=== PATIENT | female | born 1945 | race Caucasian/White ===

== ENCOUNTER → 2022-10-13 09:38 | Outpatient (CLI) | payer MEDICARE, OTHER, SELFPAY ==
--- NOTE | ~2022-10-13 | XR_ITS ---
Clinical Indication: Abnormal weight loss PA and lateral views of the chest: Comparison: 01/10/2014 Findings: The visualized lungs are clear, without evidence of focal consolidation or pleural effusion . Patient's head partially obscures the lung apices, especially on the left side. Cardiomediastinal s ilhouette is within normal limits. Prominent kyphosis of the cervicothoracic spine noted. Impression: No significant pulmonary abnormality seen. Patient's head partially obscures the lung apices. Prominent kyphosis of the cervicothoracic spine. Reviewed, dictated and finalized at location [] ILE COLORIST FORMULATOR Impression: No significant pulmonary abnormality seen. Patient's head partially obscures th e lung apices. Prominent kyphosis of the cervicothoracic spine.
== END ==
PROVIDERS: PCP Clinical Nurse Specialist; Visit Provider Clinical Nurse Specialist
DX: R63.4 Abnormal weight loss (principal)
CPT/HCPCS: 71046

== ENCOUNTER 2022-11-04 01:41 | Day surgery (SDC) | payer MEDICARE, OTHER, SELFPAY ==
[2022-10-20 10:53] VITALS: BMI 16.7
--- NOTE | 2022-11-04 10:12 | PM.HPGS ---
History of Present Illness History of Present Illness Consent: Risks, benefits, and alternatives have been discussed and questions answered. Patient agrees to proceed with procedure. Chief complaint: abnormal weight loss Narrative: Georgia Braun is a 77 year old female who has been losing weight. About 8 years ago she had a colonoscopy had removal of a tubular adenoma. Review of Systems Review of Systems: All systems reviewed & are unremarkable except as noted in HPI and below PMFSH Past Medical History Medical History Anemia Cataract (lens) fragments in eye following cataract surgery, right eye Cholecystectomy planned 1999 Chronic renal failure Femur fracture BL Hip replacement planned 1995 Hyperlipidemia Hyperparathyroidism Hypertension Osteoarthritis Osteoporosis Pneumonia Rheumatoid arthritis Surgical History Surgical History H/O ankle fusion H/O oral surgery 2004 H/O parathyroidectomy 2007 H/O splenectomy 1985 H/O wrist replacement 2000 History of knee replacement 1989 Kidney replaced by transplant 1995 Family History Family History Father Diabetes mellitus CHF (congestive heart failure) Mother Hypertension Breast cancer Social History Social History Smoking status: Never smoker Alcohol intake: current Substance use: never Substance use type: does not use Lack of Transportation: No Lack of Food: Never True Current Housing: I Have Housing Concerned About Future Housing: No Difficulty Paying Gas/Electric Bills: No Difficulty Paying for Meds: No Currently Unemployed: No Education: Bachelor's Degree Difficulty w/ Childcare or Family Care: No Living arrangements: with family Spiritual care concerns: No Meds Home Medications and Allergies Home Medications Medication Instructions Recorded Confirmed Type amlodipine 5 mg tablet 5 mg PO DAILY 11/10/21 11/04/22 History atorvastatin 20 mg tablet 20 mg PO DAILY 11/10/21 11/04/22 History escitalopram oxalate 10 mg tablet 10 mg PO DAILY 11/10/21 11/04/22 History (Lexapro) famotidine 20 mg tablet 20 mg PO DAILY 11/10/21 11/04/22 History ferrous sulfate 325 mg (65 mg 325 mg PO DAILY 11/10/21 11/04/22 History iron) tablet metoprolol succinate 25 mg 12.5 mg PO DAILY 11/10/21 11/04/22 History tablet,extended release 24 hr mycophenolate sodium 360 mg 360 mg PO BID 11/10/21 11/04/22 History tablet,delayed release (Myfortic) oxybutynin chloride 5 mg tablet 5 mg PO DAILY 11/10/21 11/04/22 History tacrolimus 1 mg capsule, 1 mg PO Q12H 11/10/21 11/04/22 History immediate-release (Prograf) mupirocin 2 % topical ointment 1 applic topical .COMPLEX #22 grams 09/19/22 11/04/22 Rx prednisone 2.5 mg tablet 2.5 mg PO DAILY 09/19/22 11/04/22 History Allergies Allergy/AdvReac Type Severity Reaction Status Date / Time methotrexate Allergy Unknown Nausea Verified 11/04/22 10:13 Exam Resp: Auscultation: clear to auscultation bilaterally Cardio: Rate: regular rate Rhythm: regular rhythm GI: GI Palp: Yes Soft to palpation and No Tenderness to palpation present (GI) Assessment and Plan Assessment and plan (1) Personal history of colonic polyps: Code(s): Z86.010 - Personal history of colonic polyps Status: Acute Assessment and Plan: Colonoscopy with possible biopsy or polypectomy or cautery or injection of substances. (2) Unexplained weight loss: Code(s): R63.4 - Abnormal weight loss Status: Acute
[2022-11-04 10:15] VITALS: BP 142/89; PULSE 102; RESP 17; TEMP 36.2; O2SAT 100; BMI 16.1
[2022-11-04] MEDS: LACTATED RINGERS 1,000 ML 150 ML IV CONT (10:46)
--- NOTE | 2022-11-04 10:59 | WPDANESEPPF ---
Anes - Initial Pre Proc Eval Procedure: Operation Date: 11/04/22 11:30 Proposed Procedures p Colonoscopy - Kendrick Anand MD Date/Time: 11/04/22 10:59 Surgeon: Kendrick Anand MD Pre Op Diagnosis: abnormal weight loss Patient Data Age: 77 Gender: F Height: 1.52 m Weight: 37.5 kg Last Vital Signs Temp 97.1 F L 11/04/22 10:15 Pulse 102 H 11/04/22 10:15 Resp 17 11/04/22 10:15 BP 142/89 H 11/04/22 10:15 Pulse Ox 100 11/04/22 10:15 O2 Del Method Room Air 11/04/22 10:15 Allergies Allergy/AdvReac Type Severity Reaction Status Date / Time methotrexate Allergy Unknown Nausea Verified 11/04/22 10:13 Home Medications Medication Instructions Recorded Confirmed Type amlodipine 5 mg tablet 5 mg PO DAILY 11/10/21 11/04/22 History atorvastatin 20 mg tablet 20 mg PO DAILY 11/10/21 11/04/22 History escitalopram oxalate 10 mg tablet 10 mg PO DAILY 11/10/21 11/04/22 History (Lexapro) famotidine 20 mg tablet 20 mg PO DAILY 11/10/21 11/04/22 History ferrous sulfate 325 mg (65 mg 325 mg PO DAILY 11/10/21 11/04/22 History iron) tablet metoprolol succinate 25 mg 12.5 mg PO DAILY 11/10/21 11/04/22 History tablet,extended release 24 hr mycophenolate sodium 360 mg 360 mg PO BID 11/10/21 11/04/22 History tablet,delayed release (Myfortic) oxybutynin chloride 5 mg tablet 5 mg PO DAILY 11/10/21 11/04/22 History tacrolimus 1 mg capsule, 1 mg PO Q12H 11/10/21 11/04/22 History immediate-release (Prograf) mupirocin 2 % topical ointment 1 applic topical .COMPLEX #22 grams 09/19/22 11/04/22 Rx prednisone 2.5 mg tablet 2.5 mg PO DAILY 09/19/22 11/04/22 History Patient hx anesthesia problems: other (prolonged awakeing) Family hx anesthesia problems: none Results Review: All pre-operative results and documents have been reviewed as part of the pre-operative evaluation. [facility] Past Medical History Medical History Anemia Cataract (lens) fragments in eye following cataract surgery, right eye Cholecystectomy planned 1999 Chronic renal failure Femur fracture BL Hip replacement planned 1995 Hyperlipidemia Hyperparathyroidism Hypertension Osteoarthritis Osteoporosis Pneumonia Rheumatoid arthritis Surgical History Surgical History H/O ankle fusion H/O oral surgery 2004 H/O parathyroidectomy 2007 H/O splenectomy 1985 H/O wrist replacement 2000 History of knee replacement 1989 Kidney replaced by transplant 1995 Family History Family History Father Diabetes mellitus CHF (congestive heart failure) Mother Hypertension Breast cancer Social History Social History Smoking status: Never smoker Alcohol intake: current Substance use: never Substance use type: does not use Lack of Transportation: No Lack of Food: Never True Current Housing: I Have Housing Concerned About Future Housing: No Difficulty Paying Gas/Electric Bills: No Difficulty Paying for Meds: No Currently Unemployed: No Education: Bachelor's Degree Difficulty w/ Childcare or Family Care: No Living arrangements: with family Spiritual care concerns: No Anes - Eval Final PreProcedure Day of Procedure 11/04/22 10:59 Patient weight: thin Heart: regular rate and rhythm Lungs: clear to auscultation Airway: Mallampati scale class IV (has history of difficult intubation) Neurological: alert and oriented Last oral intake: >/= 8 hours ASA classification: III Emergent: no Anesthetic plan: proceed Anesthesia type and monitoring: general GIVS and standard monitoring Results Review: All pre-operative results and documents have been reviewed as part of the pre-operative evaluation. Informed Consent: The patient's anesthetic plan and its attendant risks and benef
--- NOTE | 2022-11-04 11:27 | SUR.OPER ---
MADE MD AWARE, TRANSVERSE COLON POLYP NOT RETRIEVED. NO NEW ORDERS AT THIS TIME.
[2022-11-04 11:29] VITALS: BP 90/51; PULSE 82; RESP 20; O2SAT 100
[2022-11-04 11:39] VITALS: BP 105/59; PULSE 74; RESP 20; O2SAT 100
[2022-11-04 11:49] VITALS: BP 130/74; PULSE 81; RESP 22; O2SAT 100
== END 2022-11-04 11:59 | disposition home or self-care (01) ==
PROVIDERS: PCP Clinical Nurse Specialist; Visit Provider Internal Medicine Gastroenterology
PROC: 0DJD8ZZ Inspection of Lower Intestinal Tract, Via Natural or Artificial Opening Endoscopic (ICD-10-PCS; CPT 45378; principal; 2022-11-04 11:30)
DX: Z12.11 Encounter for screening for malignant neoplasm of colon (principal); D12.4 Benign neoplasm of descending colon; K63.5 Polyp of colon; R63.4 Abnormal weight loss; E78.5 Hyperlipidemia, unspecified; I10 Essential (primary) hypertension; M06.9 Rheumatoid arthritis, unspecified; M81.0 Age-related osteoporosis without current pathological fracture; D64.9 Anemia, unspecified; Z94.0 Kidney transplant status; Z79.621 Long term (current) use of calcineurin inhibitor
CPT/HCPCS: 45380; 88305; J2704; J7120

== ENCOUNTER → 2022-12-30 12:23 | Outpatient (CLI) | payer MEDICARE, OTHER, SELFPAY ==
--- NOTE | ~2022-12-30 | MM_ITS ---
EXAMINATION: MM screening juan BI w sari HISTORY: Screening TECHNIQUE: Craniocaudal and mediolateral oblique 3-D tomosynthesis images were obtained and synthetic 2-D images were generated. CAD analysis was submitted and interpreted. COMPARISON: No prior mammogram is available for comparison at this institution. BREAST PARENCHYMAL COMPOSITION: The breasts are extremely dense, which lowers the sensitivity of mamm ography FINDINGS: There is no evidence of suspicious mass, calcification, or architectural distortion to sugg est malignancy in either breast. There has been no suspicious interval change. IMPRESSION: 1. No mammographic evidence of malignancy. 2. Recommend routine screening mammography in one year. BI-RADS Category 1: Negative Reviewed, dictated and finalized at location A. OFFICER
== END ==
PROVIDERS: PCP Internal Medicine; Visit Provider Nurse Practitioner
DX: Z12.31 Encounter for screening mammogram for malignant neoplasm of breast (principal)
CPT/HCPCS: 77063; 77067

== ENCOUNTER 2023-10-03 14:03 | Emergency (ER) | payer MEDICARE, OTHER, SELFPAY ==
--- NOTE | ~2023-10-03 | XR_ITS ---
XR abdomen/kub 1V 10/03/2023 14:29 Indication: Diffuse abdominal pain Procedure: KUB Comparison: No prior studies for comparison. Findings: Bowel gas pattern is nonspecific with air-fluid levels in the left upper abdomen. Mildly di lated small bowel.. There are extensive surgical changes in the abdomen. There is a left total hip ar throplasty. Nonobstructive bowel gas pattern. Moderate colonic fecal loading. Impression: 1: Mildly dilated small bowel left upper abdomen with air-fluid levels. Partial obstruction not exclu ded. Reviewed, dictated and finalized at location L. NHOUSE INSTRUCTOR Impression: 1: Mildly dilated small bowel left upper abdomen with air-fluid levels. Partial obstruction not excluded.
[2023-10-03 14:14] VITALS: BP 139/95; PULSE 95; RESP 16; TEMP 36.6; O2SAT 98
--- NOTE | 2023-10-03 14:38 | ED.ABDPAIN ---
HPI - Abdominal Pain General Chief Complaint: Abdominal Pain Stated Complaint: Abdominal pain Source: patient Mode of arrival: ambulatory Limitations: no limitations History of Present Illness HPI narrative: Pt presents for evaluation of abdominal pain. Pain started last night going into this morning. Pain is on the right side of her abdomen, described as a dull aching sensation and rated 5/10 in severity. Pain is fairly constant. She has associated diarrhea and nausea without vomiting. No fever, chills, urinary symptoms. No history of similar symptoms. Surgical history positive for cholecystectomy, splenectomy and kidney transplant. She has an underlying history of rheumatoid arthritis, hyperlipidemia, vitamin d deficiency. Her grandson, with whom she lives, recently had COVID. Related Data Home Medications Medication Instructions Recorded Confirmed amlodipine 5 mg tablet 5 mg PO DAILY 11/10/21 10/03/23 atorvastatin 20 mg tablet 20 mg PO DAILY 11/10/21 10/03/23 escitalopram oxalate 10 mg tablet 10 mg PO DAILY 11/10/21 10/03/23 (Lexapro) ferrous sulfate 325 mg (65 mg 325 mg PO DAILY 11/10/21 10/03/23 iron) tablet metoprolol succinate 25 mg 12.5 mg PO DAILY 11/10/21 10/03/23 tablet,extended release 24 hr oxybutynin chloride 5 mg tablet 5 mg PO DAILY 11/10/21 10/03/23 tacrolimus 1 mg capsule, 1 mg PO Q12H 11/10/21 10/03/23 immediate-release (Prograf) prednisone 2.5 mg tablet 2.5 mg PO DAILY 09/19/22 10/03/23 famotidine 20 mg tablet 20 mg PO .prn 09/07/23 10/03/23 mecobalamin (vitamin B12) 1,000 1,000 mcg sublingual DAILY 09/07/23 10/03/23 mcg disintegrating tablet,sublingual Allergies Allergy/AdvReac Type Severity Reaction Status Date / Time methotrexate Allergy Unknown Nausea Verified 10/03/23 14:10 Review of Systems Review of Systems: CONSTITUTIONAL: Denies fever, chills, or sweats. EYES: Denies visual changes, redness, or discharge. ENT: Denies rhinorrhea, congestion, sore throat, or otalgia. CARDIOVASCULAR: Denies chest pain, palpitations, or edema. RESPIRATORY: Denies cough or dyspnea. GASTROINTESTINAL: Reports abdominal pain, nausea, diarrhea. Denies vomiting GENITOURINARY: Denies dysuria or hematuria. SKIN: Denies rash or itching. MUSCULOSKELETAL: Denies back pain, joint pain, or myalgia. NEUROLOGIC: Denies headache, numbness, dizziness, or weakness. PSYCHIATRIC: Denies anxiety or depression. [facility] Past Medical History Medical History Anemia Cataract (lens) fragments in eye following cataract surgery, right eye Cholecystectomy planned 1999 Chronic renal failure Femur fracture BL Hip replacement planned 1995 Hyperlipidemia Hyperparathyroidism Hypertension Osteoarthritis Osteoporosis Personal history of kidney stones Pneumonia Rheumatoid arthritis Surgical History Surgical History H/O ankle fusion H/O oral surgery 2004 H/O parathyroidectomy 2007 H/O splenectomy 1985 H/O wrist replacement 2000 History of knee replacement 1989 Kidney replaced by transplant 1995 Family History Family History Father Diabetes mellitus CHF (congestive heart failure) Mother Hypertension Breast cancer Social History Social History Smoking status: Never smoker Alcohol intake: current Substance use: never Substance use type: does not use Lack of Transportation: No Lack of Food: Never True Current Housing: I Have Housing Concerned About Future Housing: No Difficulty Paying Gas/Electric Bills: No Difficulty Paying for Meds: No Currently Unemployed: No Education: Bachelor's Degree Difficulty w/ Childcare or Family Care: No Living arrangements: with family Spiritual care concerns: No Exam Narra
[2023-10-03] MEDS: ONDANSETRON HCL ODT 4 MG TABLET PO (14:44)
== END 2023-10-03 15:22 | disposition short-term general hospital (02) ==
PROVIDERS: Emergency Provider Nurse Practitioner; PCP Internal Medicine
DX: K56.609 Unspecified intestinal obstruction, unspecified as to partial versus complete obstruction (principal); Z20.822 Contact with and (suspected) exposure to COVID-19; D64.9 Anemia, unspecified; E78.5 Hyperlipidemia, unspecified; M19.90 Unspecified osteoarthritis, unspecified site; M81.0 Age-related osteoporosis without current pathological fracture; M06.9 Rheumatoid arthritis, unspecified; Z90.89 Acquired absence of other organs; I10 Essential (primary) hypertension; Z94.0 Kidney transplant status
CPT/HCPCS: 74018; 87426; 99213; A9270; C9803; G0463

== ENCOUNTER 2023-10-03 15:54 | Emergency (ER) | payer MEDICARE, OTHER, SELFPAY ==
--- NOTE | ~2023-10-03 | CT_ITS ---
EXAMINATION: CT abdomen pelvis w con DATE: 10/03/2023 20:00 INDICATION: diffuse abd pain, partial obstruction on XR? TECHNIQUE: Computed tomography (CT) of the abdomen and pelvis was performed with 100 mL Omnipaque-350 intravenous contrast. Automated exposure control and iterative reconstruction technique were employe d. The dose-length product was 192.50 mGy-cm. COMPARISON: None. FINDINGS: Lower thorax: Senescent changes. Right lower lobe air cyst. Bibasilar scar. Coronary artery calcifica tions. Liver: Heterogeneous liver enhancement. Biliary/Gallbladder: Gallbladder is absent. No bile duct dilation. Pancreas: No mass or duct dilation. Spleen: Not confidently visualized. Adrenals: No mass. Kidneys: No suspicious mass, obstructing stone, or hydronephrosis. Severe bilateral atrophy. Right mi dpole and lower pole cysts. Bilateral hypodensities that are too small to characterize but most likel y represent cysts. Right lower quadrant transplant kidney, with a simple lower pole cyst, and nonobst ructing lower pole calculi. GI tract: Moderate distal esophageal and gastric wall edema. No definite small or large bowel dilatio n, noting that evaluation is limited by the paucity of intra-abdominal fat. Appendix not visualized. Nondilated fluid-filled cecum. Mesentery/Peritoneum: No ascites, mass, or free air. Retroperitoneum: No mass. Atherosclerotic abdominal aortic and/or arterial calcifications. Pelvis: Pelvic organs are within normal limits. Small volume free pelvic fluid. Soft Tissues: Soft tissues and body wall unremarkable. Gluteal injection granulomas. Bones: No acute osseous finding. Uncomplicated partially visualized left hip arthroplasty hardware. IMPRESSION: No CT evidence of bowel obstruction, noting that evaluation of the bowel is somewhat limited by the p aucity of abdominal fat. Moderate esophagitis/gastritis. Heterogeneous liver enhancement may reflect a degree of cirrhosis, correlate with liver enzymes. The spleen is not visualized and may be surgically absent. Severe atrophy of the [place] kidneys. Right lower quadrant renal transplant. Reviewed, dictated and finalized at location K. PREPARER IMPRESSION: No CT evidence of bowel obstruction, noting that evaluation of the bowel is maria eugenia ewhat limited by the paucity of abdominal fat. Moderate esophagitis/gastritis. Heterogeneous liver enhancement may reflect a degree of cirrhosis, correlate wi th liver enzymes. The spleen is not visualized and may be surgically absent. Severe atrophy of the [place] kidneys. Right lower quadrant renal transplant.
[2023-10-03 15:55] VITALS: BP 138/86; PULSE 96; RESP 20; TEMP 36.5; O2SAT 98
--- NOTE | 2023-10-03 18:13 | ED.ABDPAIN ---
HPI - Abdominal Pain General Chief Complaint: Abdominal Pain <BASSAM Helms Last Filed: 10/03/23 18:28> Stated Complaint: ABD PAIN ?SBO <BASSAM Helms Last Filed: 10/03/23 18:28> Time Seen by Provider: 10/03/23 20:53 <BASSAM Helms Last Filed: 10/03/23 18:28> Source: patient <BASSAM Helms Last Filed: 10/03/23 18:28> Mode of arrival: ambulatory <BASSAM Helms Last Filed: 10/03/23 18:28> Limitations: no limitations <BASSAM Helms Last Filed: 10/03/23 18:28> History of Present Illness HPI narrative: Patient is a 78 y/o female, with PMH of RA, who presents to the ED with c/o abdominal pain. Patient reports having bloating of her abdomen for the last couple weeks. She developed pain diffusely across her abdomen today. Pain has been progressively worsening. She has not taken anything for the pain. She was seen at an urgent care prior to arrival and had a abdominal x-ray performed which showed a possible partial small-bowel obstruction. She was then referred here for further evaluation. Patient reports 1 episode of diarrhea today. She notes she was constipated for several days prior to today. She does additionally endorse nausea today, denies vomiting. Denies fevers. Denies urinary complaints. Patient denies any previous hx of bowel obstruction. She has had previous abdominal surgeries, including kidney transplant, cholecystectomy, splenectomy. <BASSAM Helms Last Filed: 10/03/23 18:28> Patient is a 78 y/o female, with PMH of RA, who presents to the ED with c/o abdominal pain. Patient reports having bloating of her abdomen for the last couple weeks. She developed pain diffusely across her abdomen today. Pain has been progressively worsening. She has not taken anything for the pain. She was seen at an urgent care prior to arrival and had a abdominal x-ray performed which showed a possible partial small-bowel obstruction. She was then referred here for further evaluation. Patient reports 1 episode of diarrhea today, loose/not formed with fluffy pieces; not bloody. She notes she was constipated for several days prior to today. She does additionally endorse nausea today, denies vomiting. Denies fevers. Denies urinary complaints. Patient denies any previous hx of bowel obstruction. She has had previous abdominal surgeries, including kidney transplant, cholecystectomy, splenectomy. Med list also includes mycophenalate and Tylenol arthritis. She was given a Zofran ODT at the urgent care. <Nancy Ag MD - Last Filed: 10/03/23 22:19> Related Data Home Medications: Home Medications Medication Instructions Recorded Confirmed amlodipine 5 mg tablet 5 mg PO DAILY 11/10/21 10/03/23 atorvastatin 20 mg tablet 20 mg PO DAILY 11/10/21 10/03/23 escitalopram oxalate 10 mg tablet 10 mg PO DAILY 11/10/21 10/03/23 (Lexapro) ferrous sulfate 325 mg (65 mg 325 mg PO DAILY 11/10/21 10/03/23 iron) tablet metoprolol succinate 25 mg 12.5 mg PO DAILY 11/10/21 10/03/23 tablet,extended release 24 hr oxybutynin chloride 5 mg tablet 5 mg PO DAILY 11/10/21 10/03/23 tacrolimus 1 mg capsule, 1 mg PO Q12H 11/10/21 10/03/23 immediate-release (Prograf) prednisone 2.5 mg tablet 2.5 mg PO DAILY 09/19/22 10/03/23 famotidine 20 mg tablet 20 mg PO .prn 09/07/23 10/03/23 mecobalamin (vitamin B12) 1,000 1,000 mcg sublingual DAILY 09/07/23 10/03/23 mcg disintegrating tablet,sublingual <Joan Yancey PA-C - Last Filed: 10/03/23 18:28> Allergies/Adverse Reactions: Allergies Allergy/AdvReac Type Severity Reaction Status Date / Time methotrexate Allergy Unknown Nausea Verified 10/03/23 14:10 <Joan Yancey PA-C - Last Filed: 10/03/23 18:28> Review of Systems Review of Systems: CONSTITUTIONAL: Denies fever, chills, or sweats. GASTROINTESTINAL: See HPI. GENITOUR
[2023-10-03 18:50] LABS: Basophils Absolute Auto 0.1 K/mm3 (0.0-0.1); Basophils Percent Auto 0.3 % (0.2-1.2); Eosinophils Percent Auto 0.2 % (0-4.4); Hematocrit 37.1 % (37.0-47.0); Immature Granulocyte Absolute 0.05 K/mm3 (0.00-0.031); Immature Granulocyte Percent A 0.3 % (0-0.5); Lymphocytes Percent Auto 13.6 % (18.3-44.2); Mean Corpuscular HGB Conc 29.6 g/dl (32-36); Mean Corpuscular Hemoglobin 25.9 pg (26-34); Mean Corpuscular Volume 87.3 fl (80-100); Mean Platelet Volume 11.3 fl (7.4-10.4); Monocytes Absolute Auto 0.8 K/mm3 (0.1-0.6); Monocytes Percent Auto 4.7 % (2.6-8.5); Neutrophils Absolute Auto 14.3 K/mm3 (1.3-6.7); Neutrophils Percent Auto 80.9 % (45.5-73.1); Platelet Count Result 511 k/mm3 (150-375); Red Blood Count 4.25 M/mm3 (4.2-5.4); Red Cell Distribution Width 18.3 % (11.5-14.5); White Blood Count 17.7 K/mm3 (4.5-10.0)
[2023-10-03 19:09] LABS: Anisocytosis 1+ (NORMAL); Hypochromasia 1+ (NORMAL); Ovalocytes 1+ (NORMAL); Platelet Estimate Increased (Adequate)
[2023-10-03 19:10] LABS: Schistocytes None Seen (NORMAL); Target Cells 1+ (NORMAL)
[2023-10-03 19:24] LABS: Lactic Acid Reflex 1.2 mmol/L (0.7-2.0)
[2023-10-03 19:29] LABS: Alanine Aminotransferase 12 U/L (6-35); Albumin Level 3.6 g/dL (3.5-5.1); Alkaline Phosphatase 87 U/L (38-126); Anion Gap 6 mmol/L (8-16); Aspartate Amino Transferase 29 U/L (14-36); Bilirubin,Total 1.2 mg/dL (0.2-1.3); Blood Urea Nitrogen 23 mg/dL (7-17); Calcium 10.1 mg/dL (8.4-10.2); Carbon Dioxide 26 mmol/L (22-30); Chloride 108 mmol/L (98-107); Estimated CRCL calculation 35 ml/min; Estimated Glomerular Filt Rate > 60; Glucose 95 mg/dL (65-110); Lipase 52 U/L (23-300); Sodium 140 mmol/L (137-145)
[2023-10-03 21:03] VITALS: BP 185/91; PULSE 80; RESP 23; TEMP 36.3; O2SAT 97
[2023-10-03 21:55] VITALS: BP 146/93; PULSE 65; RESP 15; TEMP 36.6; O2SAT 99
== END 2023-10-03 21:56 | disposition home or self-care (01) ==
LOC: ANHED 21:30
PROVIDERS: Physician Assistant; Emergency Provider Student in an Organized Health Care Education/Training Program; PCP Internal Medicine
DX: K59.00 Constipation, unspecified (principal); I12.9 Hypertensive chronic kidney disease with stage 1 through stage 4 chronic kidney disease, or unspecified chronic kidney disease; N18.9 Chronic kidney disease, unspecified; E78.5 Hyperlipidemia, unspecified; D64.9 Anemia, unspecified; M19.90 Unspecified osteoarthritis, unspecified site; M81.0 Age-related osteoporosis without current pathological fracture; M06.9 Rheumatoid arthritis, unspecified; Z94.0 Kidney transplant status; Z96.653 Presence of artificial knee joint, bilateral; Z96.639 Presence of unspecified artificial wrist joint; Z87.01 Personal history of pneumonia (recurrent); Z90.81 Acquired absence of spleen; Z90.710 Acquired absence of both cervix and uterus; Z90.89 Acquired absence of other organs; Z90.49 Acquired absence of other specified parts of digestive tract; R93.2 Abnormal findings on diagnostic imaging of liver and biliary tract; K20.90 Esophagitis, unspecified without bleeding; K29.70 Gastritis, unspecified, without bleeding
CPT/HCPCS: 36415; 74018; 74177; 80053; 83605; 83690; 85025; 87426; 99284; A9270; C9803; Q9967

== ENCOUNTER 2024-02-04 17:36 | Emergency (ER) | payer MEDICARE, OTHER, SELFPAY ==
[2024-02-04 17:43] VITALS: BP 168/104; PULSE 92; RESP 16; TEMP 36.8; O2SAT 96
--- NOTE | 2024-02-04 20:23 | ED.EPISTAXIS ---
HPI - Epistaxis General Chief complaint: Epistaxis Stated complaint: epistaxis Time Seen by Provider: 02/04/24 20:16 History of Present Illness HPI Narrative: 79-year-old female with a known perforated septum and frequent epistaxis presents to emergency department with family at bedside for epistaxis. States she blew her nose and it started bleeding out of both nares around 5:00 p.m.. Her family member states that she passed a few blood clots from her nares. Patient states when it was bleeding more earlier, she felt like she had difficulty breathing secondary to the clogged nares, however she denies current dyspnea, chest pain, lightheadedness or dizziness, loss of consciousness. States it does not feel like there is blood going down the back of her throat. She is not anticoagulated. Her ENT is Dr. Marie. Related Data Home Medications Medication Instructions Recorded Confirmed amlodipine 5 mg tablet 5 mg PO DAILY 11/10/21 10/03/23 atorvastatin 20 mg tablet 20 mg PO DAILY 11/10/21 10/03/23 escitalopram oxalate 10 mg tablet 10 mg PO DAILY 11/10/21 10/03/23 (Lexapro) ferrous sulfate 325 mg (65 mg 325 mg PO DAILY 11/10/21 10/03/23 iron) tablet metoprolol succinate 25 mg 12.5 mg PO DAILY 11/10/21 10/03/23 tablet,extended release 24 hr oxybutynin chloride 5 mg tablet 5 mg PO DAILY 11/10/21 10/03/23 tacrolimus 1 mg capsule, 1 mg PO Q12H 11/10/21 10/03/23 immediate-release (Prograf) prednisone 2.5 mg tablet 2.5 mg PO DAILY 09/19/22 10/03/23 famotidine 20 mg tablet 20 mg PO .prn 09/07/23 10/03/23 mecobalamin (vitamin B12) 1,000 1,000 mcg sublingual DAILY 09/07/23 10/03/23 mcg disintegrating tablet,sublingual Allergies Allergy/AdvReac Type Severity Reaction Status Date / Time methotrexate Allergy Unknown Nausea Verified 02/04/24 20:20 Review of Systems Review of Systems: CONSTITUTIONAL: Denies fever, chills, or sweats. EYES: Denies visual changes, redness, or discharge. ENT: See HPI CARDIOVASCULAR: Denies chest pain, palpitations, or edema. RESPIRATORY: Denies cough or dyspnea. GASTROINTESTINAL: Denies abdominal pain, nausea, vomiting, or diarrhea. GENITOURINARY: Denies dysuria or hematuria. SKIN: Denies rash or itching. MUSCULOSKELETAL: Denies back pain, joint pain, or myalgia. NEUROLOGIC: Denies headache, numbness, or weakness. PSYCHIATRIC: Denies anxiety or depression. [facility] Past Medical History Medical History Anemia Cataract (lens) fragments in eye following cataract surgery, right eye Chronic renal failure Femur fracture BL Hip replacement planned 1995 Hyperlipidemia Hyperparathyroidism Hypertension Osteoarthritis Osteoporosis Personal history of kidney stones Pneumonia Rheumatoid arthritis Surgical History Surgical History H/O ankle fusion H/O oral surgery 2004 H/O parathyroidectomy 2007 H/O splenectomy 1985 H/O wrist replacement 2000 History of cholecystectomy History of knee replacement 1989 Kidney replaced by transplant 1995 Family History Family History Father Diabetes mellitus CHF (congestive heart failure) Mother Hypertension Breast cancer Social History Social History Smoking status: Never smoker Alcohol intake: current Substance use: never Substance use type: does not use Lack of Transportation: No Lack of Food: Never True Current Housing: I Have Housing Concerned About Future Housing: No Difficulty Paying Gas/Electric Bills: No Difficulty Paying for Meds: No Currently Unemployed: No Education: Bachelor's Degree Difficulty w/ Childcare or Family Care: No Living arrangements: with family Additional living arrangements comments: daughter Spiritual care concerns: No Exam Narrative
[2024-02-04 21:08] VITALS: BP 175/95; PULSE 82; RESP 15; O2SAT 97
[2024-02-04 21:14] VITALS: PULSE 82
[2024-02-04] MEDS: METOPROLOL SUCCINATE EXT REL 25 MG TABCR PO (21:14)
[2024-02-04 22:20] VITALS: BP 184/109; PULSE 84; RESP 18; O2SAT 96
== END 2024-02-04 22:30 | disposition home or self-care (01) ==
PROVIDERS: Emergency Provider Physician Assistant; PCP Internal Medicine
DX: R04.0 Epistaxis (principal); I12.9 Hypertensive chronic kidney disease with stage 1 through stage 4 chronic kidney disease, or unspecified chronic kidney disease; N18.9 Chronic kidney disease, unspecified; E78.5 Hyperlipidemia, unspecified; M19.90 Unspecified osteoarthritis, unspecified site; M81.0 Age-related osteoporosis without current pathological fracture; M06.9 Rheumatoid arthritis, unspecified; H59.021 Cataract (lens) fragments in eye following cataract surgery, right eye; Z94.0 Kidney transplant status; Z96.653 Presence of artificial knee joint, bilateral; Z96.639 Presence of unspecified artificial wrist joint; Z86.2 Personal history of diseases of the blood and blood-forming organs and certain disorders involving the immune mechanism; Z87.442 Personal history of urinary calculi; Z87.01 Personal history of pneumonia (recurrent); Z90.89 Acquired absence of other organs; Z90.81 Acquired absence of spleen; Z90.49 Acquired absence of other specified parts of digestive tract
CPT/HCPCS: 30901; 99283; A9270

== ENCOUNTER 2024-05-25 09:34 | Emergency (ER) | payer MEDICARE, OTHER, SELFPAY ==
--- NOTE | ~2024-05-25 | CT_ITS ---
EXAMINATION: CT cervical spine wo con DATE: 05/25/2024 11:47 INDICATION: Neck pain after trauma TECHNIQUE: Computed tomography (CT) of the cervical spine was performed without intravenous contrast. The dose-length product was 85 mGy-cm. COMPARISON: None FINDINGS: There is severe levoscoliosis with lateral listhesis to the left at C4-5 and C5-6. There is also anterolisthesis at C4-5, C5-6, C6-7 and C7-T1. There areas and agitation of the odontoid proces s into the foramen magnum. Lytic defects of C2 and C3 were noted. Consider metastatic disease and mye ashley. Consider perched facet at C4-5 and C5-6. Mild wedge compression fracture of T3, age indetermina te. IMPRESSION: 1. Significant anterolisthesis at multiple levels including C4-5 through C7-T1 as well as left latera l listhesis at C4-5 and C5-6. Possible perched facets at C4-5 and C5-6. 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 3: Lytic defects of C2 and C3. Consider metastatic disease and myeloma. 4: Mild age-indeterminate wedge compression deformity of T3. Reviewed, dictated and finalized at location B. IMPRESSION: 1. Significant anterolisthesis at multiple levels including C4-5 through C7-T1 as well as left lateral listhesis at C4-5 and C5-6. Possible perched facets at C4-5 and C5-6. 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 3: Lytic defects of C2 and C3. Consider metastatic disease and myeloma. 4: Mild age-indeterminate wedge compression deformity of T3.
--- NOTE | ~2024-05-25 | CT_ITS ---
EXAMINATION: CT brain wo con DATE: 05/25/2024 11:46 INDICATION: Trauma. Head injury. TECHNIQUE: Computed tomography (CT) of the head was performed without intravenous contrast. The dose- length product was 605.33 mGy-cm. Automated exposure control and iterative reconstruction technique were employed. COMPARISON: None FINDINGS: Mild generalized atrophy. There are scattered mild periventricular and subcortical white ma tter changes, most likely related to small vessel ischemic disease (microangiopathy). No ventriculome christel or midline shift. There is intracranial atherosclerosis. Pituitary appears hyperdense, nonspecif ic. 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 No significant enlargement of the pituitary. IMPRESSION: 1. No acute intracranial abnormality. 2: Hyperdense pituitary gland. 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 3: Chronic age-related findings. Reviewed, dictated and finalized at location B.
--- NOTE | ~2024-05-25 | CT_ITS ---
EXAMINATION: CT chest abdomen pelvis w con DATE: 05/25/2024 12:12 CDT INDICATION: Trauma. TECHNIQUE: Computed tomography (CT) of the chest, abdomen, and pelvis was performed with 100 cc Omnip aque 350 intravenous contrast. The dose-length product was 247.26 mGy-cm. Automated exposure control and iterative reconstruction technique were employed. COMPARISON: CT dated 10/03/2023 FINDINGS: CHEST CT: Cardiomegaly. No significant pleural or pericardial effusion. No thoracic lymphadenopathy. There is a therosclerosis. There is dependent atelectasis. There are right fourth, fifth, sixth, seventh and eig hth rib fractures. There is an age-indeterminate sternal fracture with posterior displacement of the manubrium with respect to the sternum. There is scoliosis. ABDOMEN/PELVIS CT: Status post cholecystectomy. The spleen is not identified, possibly surgically absent. The kidneys ar e severely atrophic. There is a transplant kidney in the right pelvis. Mild hydronephrosis. There is a nonobstructing right renal stone in the transplant kidney. Nonobstructive bowel gas pattern. There is atherosclerosis. Bladder is severely distended. There is a left hip arthroplasty. There are severa l calcifications in the gluteal soft tissues, likely injection granulomas. IMPRESSION: 1. Multiple right rib fractures. 2: Age-indeterminate sternal fracture. 3: Nonobstructing right nephrolithiasis in the transplant kidney in the right pelvis. Reviewed, dictated and finalized at location B. IMPRESSION: 1. Multiple right rib fractures. 2: Age-indeterminate sternal fracture. 3: Nonobstructing right nephrolithiasis in the transplant kidney in the right p hussein.
[2024-05-25 09:32] VITALS: BP 165/95; PULSE 75; RESP 20; TEMP 36.4; O2SAT 97
[2024-05-25 10:00] VITALS: BP 151/81; PULSE 61; RESP 22; O2SAT 100
--- NOTE | 2024-05-25 10:18 | ED.FALL ---
HPI - Fall General Chief Complaint: Fall Stated Complaint: FALL-RIB PAIN Time Seen by Provider: 05/25/24 09:38 History of Present Illness HPI Narrative: 79-year-old female presents to the emergency department for evaluation for a ground level fall. Patient states that she was attempting to get some food from the Fridge when she turned and fell. Fall happened last night approximately 10:00 p.m.. Patient is unsure if she struck her head. Patient denies any loss of consciousness. Patient states since the fall she has had increased right-sided rib pain. Patient presented to the emergency department with her neighbors to assist. Related Data Home Medications Medication Instructions Recorded Confirmed amlodipine 5 mg tablet 5 mg PO DAILY 11/10/21 03/14/24 atorvastatin 20 mg tablet 20 mg PO DAILY 11/10/21 03/14/24 escitalopram oxalate 10 mg tablet 10 mg PO DAILY 11/10/21 03/14/24 (Lexapro) ferrous sulfate 325 mg (65 mg 325 mg PO DAILY 11/10/21 03/14/24 iron) tablet metoprolol succinate 25 mg 12.5 mg PO DAILY 11/10/21 03/14/24 tablet,extended release 24 hr oxybutynin chloride 5 mg tablet 5 mg PO DAILY 11/10/21 03/14/24 tacrolimus 1 mg capsule, 1 mg PO Q12H 11/10/21 03/14/24 immediate-release (Prograf) prednisone 2.5 mg tablet 2.5 mg PO DAILY 09/19/22 03/14/24 famotidine 20 mg tablet 20 mg PO .prn 09/07/23 03/14/24 mecobalamin (vitamin B12) 1,000 1,000 mcg sublingual DAILY 09/07/23 03/14/24 mcg disintegrating tablet,sublingual Allergies Allergy/AdvReac Type Severity Reaction Status Date / Time methotrexate Allergy Unknown Nausea Verified 03/14/24 08:01 Review of Systems Review of Systems: All systems reviewed & are unremarkable except as noted in HPI and below PMFSH Past Medical History Medical History Anemia Cataract (lens) fragments in eye following cataract surgery, right eye Chronic renal failure Femur fracture BL Hip replacement planned 1995 Hyperlipidemia Hyperparathyroidism Hypertension Osteoarthritis Osteoporosis Personal history of kidney stones Pneumonia Rheumatoid arthritis Surgical History Surgical History (Reviewed 03/14/24 @ 08:02 by Nicole Estrella [facility]) H/O ankle fusion H/O oral surgery 2004 H/O parathyroidectomy 2007 H/O splenectomy 1985 H/O wrist replacement 2000 History of cholecystectomy History of knee replacement 1989 Kidney replaced by transplant 1995 Family History Family History (Reviewed 03/14/24 @ 08:02 by Nicole Estrella [facility]) Father Diabetes mellitus CHF (congestive heart failure) Mother Hypertension Breast cancer Social History Social History (Reviewed 03/14/24 @ 08:02 by Nicole Estrella [facility]) Smoking status: Never smoker Alcohol intake: current Substance use: never Substance use type: does not use Lack of Transportation: No Lack of Food: Never True Current Housing: I Have Housing Concerned About Future Housing: No Difficulty Paying Gas/Electric Bills: No Difficulty Paying for Meds: No Currently Unemployed: No Education: Bachelor's Degree Difficulty w/ Childcare or Family Care: No Living arrangements: with family Additional living arrangements comments: daughter Spiritual care concerns: No Exam Narrative: APPEARANCE: Uncomfortable appearing, cachectic HEAD: normocephalic, atraumatic. EYES: PERRLA/EOMI, conjunctivae clear. NOSE: Normal no drainage EARS:TMS clear with good light reflex. THROAT: Pharynx clear, no exudate. NECK: Supple. No adenopathy, no masses. RESPIRATORY: Airway patent, respirations nonlabored. Clear to auscultation bilaterally, no rales, rhonchi, wheezing. CARDIOVASCULAR: Regular rate and rhythm without murmurs rubs or gallops. ABDOMINAL: Soft, nontender, nondistended, normal bowel sounds MUSCULOSKELETAL: Right posterior rib tenderness to palpation, no deformity, no ecchymosis NEURO: Alert. Cranial ner
[2024-05-25 11:34] LABS: Estimated CRCL calculation 49 ml/min; Estimated Glomerular Filt Rate > 60
[2024-05-25 12:08] VITALS: PULSE 80; RESP 24; O2SAT 91
[2024-05-25 12:09] VITALS: BP 140/86; PULSE 75; RESP 29; O2SAT 100
[2024-05-25] MEDS: fentaNYL CITRATE INJ (*CRX) 100 MCG/2 ML VIAL 50 MCG IV PUSH ×2 (12:43→14:59)
[2024-05-25 14:00] VITALS: BP 141/80; PULSE 64; RESP 25; O2SAT 100
[2024-05-25 14:00] LABS: Basophils Percent Auto 0.2 % (0.2-1.2); Hematocrit 34.1 % (37.0-47.0); Hemoglobin 10.4 g/dL (12.0-15.0); Immature Granulocyte Absolute 0.07 K/mm3 (0.00-0.031); Immature Granulocyte Percent A 0.5 % (0-0.5); Lymphocytes Absolute Auto 0.96 K/mm3 (0.9-3.2); Lymphocytes Percent Auto 6.4 % (18.3-44.2); Mean Corpuscular HGB Conc 30.5 g/dl (32-36); Mean Corpuscular Hemoglobin 25.6 pg (26-34); Mean Platelet Volume 11.6 fl (7.4-10.4); Monocytes Absolute Auto 0.7 K/mm3 (0.1-0.6); Monocytes Percent Auto 4.3 % (2.6-8.5); Neutrophils Absolute Auto 13.4 K/mm3 (1.3-6.7); Neutrophils Percent Auto 88.6 % (45.5-73.1); Platelet Count Result 468 k/mm3 (150-375); Red Blood Count 4.06 M/mm3 (4.2-5.4); Red Cell Distribution Width 18.7 % (11.5-14.5); White Blood Count 15.1 K/mm3 (4.5-10.0)
[2024-05-25 14:03] LABS: Prothrombin Time 13.3 Seconds (11.1-14.7)
[2024-05-25 14:05] LABS: Alanine Aminotransferase 16 U/L (6-35); Albumin Level 3.6 g/dL (3.5-5.1); Alkaline Phosphatase 93 U/L (38-126); Anion Gap 7 mmol/L (4-12); Aspartate Amino Transferase 30 U/L (14-36); Bilirubin,Total 0.8 mg/dL (0.2-1.3); Blood Urea Nitrogen 25 mg/dL (7-17); Calcium 9.5 mg/dL (8.4-10.2); Carbon Dioxide 28 mmol/L (22-30); Chloride 104 mmol/L (98-107); Estimated CRCL calculation 42 ml/min; Estimated Glomerular Filt Rate > 60; Glucose 103 mg/dL (65-110); Potassium 4.2 mmol/L (3.4-5.0); Sodium 139 mmol/L (137-145)
[2024-05-25 15:01] VITALS: BP 149/83; PULSE 61; RESP 23; O2SAT 99
== END 2024-05-25 15:53 | disposition short-term general hospital (02) ==
PROVIDERS: Emergency Provider Emergency Medicine; PCP Internal Medicine
DX: S22.41XA Multiple fractures of ribs, right side, initial encounter for closed fracture (principal); S27.0XXA Traumatic pneumothorax, initial encounter; M43.12 Spondylolisthesis, cervical region; I12.9 Hypertensive chronic kidney disease with stage 1 through stage 4 chronic kidney disease, or unspecified chronic kidney disease; N18.9 Chronic kidney disease, unspecified; E78.5 Hyperlipidemia, unspecified; D64.9 Anemia, unspecified; M19.90 Unspecified osteoarthritis, unspecified site; M85.80 Other specified disorders of bone density and structure, unspecified site; M06.9 Rheumatoid arthritis, unspecified; H59.021 Cataract (lens) fragments in eye following cataract surgery, right eye; Z94.0 Kidney transplant status; Z96.639 Presence of unspecified artificial wrist joint; Z96.649 Presence of unspecified artificial hip joint; Z96.653 Presence of artificial knee joint, bilateral; Z87.442 Personal history of urinary calculi; Z87.01 Personal history of pneumonia (recurrent); Z90.49 Acquired absence of other specified parts of digestive tract; Z90.89 Acquired absence of other organs; Z90.81 Acquired absence of spleen; Z79.899 Other long term (current) drug therapy; N20.0 Calculus of kidney; R93.7 Abnormal findings on diagnostic imaging of other parts of musculoskeletal system; R93.0 Abnormal findings on diagnostic imaging of skull and head, not elsewhere classified; W18.39XA Other fall on same level, initial encounter
CPT/HCPCS: 36415; 70450; 71260; 72125; 74177; 80053; 85025; 85610; 85730; 96374; 96376; 99285; J3010; L0140; Q9967

== ENCOUNTER 2024-10-29 12:24 | Emergency (ER) | payer MEDICARE, OTHER, SELFPAY ==
[2024-10-29 12:51] VITALS: BP 144/104; PULSE 101; RESP 16; TEMP 36.6; O2SAT 98
--- NOTE | 2024-10-29 13:39 | ED_ITS ---
HPI - Female Genitourinary General Chief complaint: Urogenital-Female Stated complaint: UTI Time Seen by Provider: 10/29/24 13:20 Source: patient, RN notes reviewed and old records reviewed Mode of arrival: ambulatory Limitations: no limitations History of Present Illness HPI Narrative: 79 year old female who presents to [facility] care accompanied by family with complaints of cloudy foul odorous urine for the past 2 days. with no fevers known, chills or sweats.Patient reports that she has had some burning with urination and also frequency for the past 5-6 days. Patient has had previous kidney transplant and has history of rheumatoid arthritis with severe contractures noted Patient reports no nausea or vomiting or episodes of diarrhea. Patient is resident of assisted living facility/ MD elicited complaint: UTI Pertinent past history: other (kidney transplant) Onset (ago): day(s) (5-6 days) Location of symptoms: perineum Severity: moderate Vaginal discharge: none Vaginal bleeding: none Treatment prior to arrival: none Related Data Home Medications ?Medication ?Instructions ?Recorded ?Confirmed ?Last Taken ?Type amlodipine 5 mg tablet 5 mg PO DAILY 11/10/21 10/29/24 11/04/22 09:00 History atorvastatin 20 mg tablet 20 mg PO DAILY 11/10/21 10/29/24 Unknown History escitalopram oxalate 10 mg tablet 10 mg PO DAILY 11/10/21 10/29/24 Unknown History (Lexapro) ferrous sulfate 325 mg (65 mg 325 mg PO DAILY 11/10/21 10/29/24 Unknown History iron) tablet metoprolol succinate 25 mg 12.5 mg PO DAILY 11/10/21 10/29/24 Unknown History tablet,extended release 24 hr oxybutynin chloride 5 mg tablet 5 mg PO DAILY 11/10/21 10/29/24 Unknown History tacrolimus 1 mg capsule, 1 mg PO Q12H 11/10/21 10/29/24 Unknown History immediate-release (Prograf) prednisone 2.5 mg tablet 2.5 mg PO DAILY 09/19/22 10/29/24 Unknown History famotidine 20 mg tablet 20 mg PO .prn 09/07/23 10/29/24 Unknown History mecobalamin (vitamin B12) 1,000 1,000 mcg sublingual DAILY 09/07/23 10/29/24 Unknown History mcg disintegrating tablet,sublingual acetaminophen 500 mg capsule 1,000 mg PO Q6H PRN 06/27/24 06/27/24 Unknown History cholecalciferol (vitamin D3) 50 50 mcg PO DAILY 06/27/24 10/29/24 Unknown History mcg (2,000 unit) capsule lidocaine 4 % topical patch 2 patch topical DAILY PRN pain 06/27/24 10/29/24 Unknown History mycophenolate sodium 360 mg mg PO 10/29/24 Unknown History tablet,delayed release Allergies Allergy/AdvReac Type Severity Reaction Status Date / Time methotrexate Allergy Unknown Nausea Verified 09/24/24 07:53 Review of Systems Review of Systems: CONSTITUTIONAL: Denies fever, chills, or sweats. CARDIOVASCULAR: Denies chest pain, palpitations, or edema. RESPIRATORY: Denies cough or dyspnea. GASTROINTESTINAL: Denies abdominal pain, nausea, vomiting, or diarrhea. GENITOURINARY: Reports dysuria, frequency, urgency. Denies flank pain or hematuria. SKIN: Denies rash or itching. MUSCULOSKELETAL: positive for chronic back pain or myalgia. Denies CVA tenderness NEUROLOGIC: Denies headache All systems reviewed & are unremarkable except as noted in HPI and below PMFSH Past Medical History Medical History Personal history of kidney stones Cataract (lens) fragments in eye following cataract surgery, right eye Hypertension Osteoporosis Anemia Hip replacement planned 1995 Pneumonia Osteoarthritis Hyperparathyroidism Hyperlipidemia Femur fracture BL Chronic renal failure Rheumatoid arthritis Surgical History Surgical History History of cholecystectomy H/O ankle fusion H/O splenectomy 1984 History of knee replacement 1989 H/O wrist replacement 2000 H/O oral surgery 2004 H/O parathyroidectomy 2007 Kidney replaced by transplant 1995 Family History Family History Father Diabetes mellitus CHF (congestive heart failure) Mother Hypertension Breast cancer Social History Social History Social History: Caffeine-tea Smoking status: Never smoker Alcohol intake: current Alcohol use details: rarely Substance use: never Substance use type: does not use Lack of Transportation: No Lack of Food: Never True Current Housing: I Have Housing Concerned About Future Housing: No Difficulty Paying Gas/Electric Bills: No Difficulty Paying for Meds: No Currently Unemployed: No Education: Bachelor's Degree Difficulty w/ Childcare or Family Care: No Living arrangements: with family Additional living arrangements comments: daughter Spiritual care concerns: No Comments At time of signature, agree with nursing past medical, surgical, social and family history. There is no relevant family history pertinent to the presenting complaint Exam Narrative: GENERAL: chronic ill appearing-appearing, well-nourished, and in no acute distress. HEAD: Normocephalic, atraumatic. NECK: .contractures no lymphadenopathy CHEST: Clear to auscultation. No respiratory distress.SAO2 98% on room air HEART: Regular rate and rhythm. No murmur heard. Normal peripheral pulses. ABDOMEN: Soft, nontender, nondistended, normal active bowel sounds. No CVA tenderness EXTREMITIES: Patient has log history of rheumatoid arthritis with contractures of extremities, has limited mobility SKIN: Warm, dry, no rash. NEURO: No focal deficits. Alert and oriented x3. Course Course Emergency Course: Patient is aware of diagnosis, understands and agrees to treatment plan.? Anticipatory guidance given.? Patient agrees to follow-up as directed and is aware of reasons to seek care at the emergency department. Portions of this record may have been created with voice recognition software Level of Care: Express Care Visit Vital Signs Vital signs: Vital Signs Temperature 36.6 C 10/29/24 12:51 Pulse Rate 101 H 10/29/24 12:51 Respiratory Rate 16 10/29/24 12:51 Blood Pressure 144/104 H 10/29/24 12:51 Pulse Oximetry 98 10/29/24 12:51 Temperature 36.6 C 10/29/24 12:51 Pulse Rate 101 H 10/29/24 12:51 Respiratory Rate 16 10/29/24 12:51 Blood Pressure 144/104 H 10/29/24 12:51 Pulse Oximetry 98 10/29/24 12:51 MDM - Female Genitourinary MDM Narrative Medical decision making narrative: Exam findings and UA show no acute concerns or changes; patient is non-toxic appearing and is in no distress.? Patient is appropriate for outpatient treatment and follow-up. Differential Diagnosis Differential diagnosis: Likely urinary tract infection, cystitis and other (dysuria) Medical Records Attestation: I reviewed the patient's medical records. Lab Data Attestation: I reviewed the patient's lab results. Lab results narrative: glucose negative, bilirubin negative, ketone negative, specific gravity 1.025, blood 2+, pH 6.0, protein 3+, urobilinogen 0.2 nitrate negative leukocyte 1+ Labs: Lab Results 10/29/24 Range/Units 12:55 POC Urine Color Yellow POC Urine Clarity Cloudy POC Urine pH 6.0 POC Ur Specif [place] 1.025 POC Urine Protein 3+ (Negative) POC Ur Glucose (UA) Negative (Negative) POC Urine Ketones Negative (Negative) POC Urine Blood 2+ (Negative) POC Urine Nitrite Negative (Negative) POC Urine Bilirubin Negative (Negative) POC Urine Urobilinogen 0.2 POC U Leukocyte Esteras 1+ (Negative) Critical Care Time Critical Care Time Critical Care Time: No Discharge Plan Discharge Clinical Impression: Acute UTI Patient Disposition: Home, Self-Care Condition: Stable Instructions: Antibiotic Form, Urinary Tract Infection in Women (ED) Additional Instructions: Increase fluids especially cranberry juice and water Avoid caffeine and carbonated beverages Antibiotic as directed Tylenol/ for pain or fever Follow-up with her primary care provider if further problems or concerns Recheck if you have fever over 101, nausea and vomiting. If your symptoms persist, change or worsen significantly before you can contact your personal physician then please, without delay, go to the emergency department for further evaluation. Follow-up with PCP in 7-10 days or sooner if needed Follow up with PCP soon in regards to your blood pressure which is elevated above threshold for referral. Blood pressure above 120/80 may indicate pre- hypertension. 144/104 Patient Language: [place] Prescriptions: New amoxicillin-pot clavulanate 875-125 mg tablet 1 tablet PO Q12H Qty: 10 0RF No Action mycophenolate sodium 360 mg tablet,delayed release (DR/EC) PO prednisone 2.5 mg tablet 2.5 mg PO DAILY mupirocin 2 % ointment 1 applic topical BID Qty: 22 1RF Rx Instructions: Intranasal amlodipine 5 mg tablet 5 mg PO DAILY atorvastatin 20 mg tablet 20 mg PO DAILY ferrous sulfate 325 mg (65 mg iron) tablet 325 mg PO DAILY escitalopram oxalate [Lexapro] 10 mg tablet 10 mg PO DAILY metoprolol succinate 25 mg tablet extended release 24 hr 12.5 mg PO DAILY oxybutynin chloride 5 mg tablet 5 mg PO DAILY tacrolimus [Prograf] 1 mg capsule 1 mg PO Q12H famotidine 20 mg tablet 20 mg PO .prn mecobalamin (vitamin B12) 1,000 mcg tablet,disintegrating 1,000 mcg sublingual DAILY Rx Instructions: place tablet under tongue and allow to dissolve for at least30 secs before swallowing lidocaine 4 % adhesive patch,medicated 2 patch topical DAILY PRN (Reason: pain) acetaminophen 500 mg capsule 1,000 mg PO Q6H PRN cholecalciferol (vitamin D3) 50 mcg (2,000 unit) capsule 50 mcg PO DAILY fluticasone propionate [Flonase Allergy Relief] 50 mcg/actuation spray,suspension 1 spray intranasal Q12H Qty: 16 0RF Rx Instructions: administer into each nostril Follow-up/Referrals: Obdulio Campos DO [Primary Care Provider] - Time of Disposition: 14:03 Quality [place] Coma Scale Eyes: Open Verbal: Oriented and Alert Motor: Follows Commands [place] Coma Total Score: 15
[2024-10-29 13:55] LABS: EDUAAPPEAR Cloudy; EDUABILI Negative (Negative); EDUABLOOD 2+ (Negative); EDUACOLOR1 Yellow; EDUAGLUCOSE Negative (Negative); EDUAKETONE Negative (Negative); EDUALEUKO 1+ (Negative); EDUANITRATE Negative (Negative); EDUAPROTEIN 3+ (Negative); EDUASPGRAVITY 1.025; EDUAUROBILI 0.2
== END 2024-10-29 14:03 | disposition home or self-care (01) ==
PROVIDERS: Emergency Provider Registered Nurse; PCP Internal Medicine
DX: N39.0 Urinary tract infection, site not specified (principal); I10 Essential (primary) hypertension; E21.3 Hyperparathyroidism, unspecified; E78.5 Hyperlipidemia, unspecified; M06.9 Rheumatoid arthritis, unspecified; M81.0 Age-related osteoporosis without current pathological fracture; M19.90 Unspecified osteoarthritis, unspecified site; Z94.0 Kidney transplant status; Z96.653 Presence of artificial knee joint, bilateral; Z90.89 Acquired absence of other organs
CPT/HCPCS: 81003; 87086; 99213; G0463

== ENCOUNTER 2025-01-09 13:21 | Outpatient (NON) | payer MEDICARE, OTHER, SELFPAY ==
--- OUTSIDE RECORDS SUMMARY | 2025-01-09 15:01 | XMS_ITS | Referral Summary ---
Author Organization [facility] Address [address] [place] [address] Care Team Providers Care Insights Analyst Name Role Phone Obdulio Campos DO Primary Care Provider [phone] Rosemary Whiting RN Unavailable Christian Friend MD Unavailable [phone] Encounters Date Type Department Care Team Description 12/04/2024 Telephone [facility] Transplant Kidney [address] [facility] [address] 12[address]08[address]950 [place] [address] Rosemary Whiting, RN 12/03/2024 Lab [facility] Transplant Kidney [address] [facility] [address] [id number] [place] [address] Rneetta Crane MD 11/05/2024 Telephone [facility] Transplant Kidney [address] [facility] [address] [id number] [place] [address] Rosemary Whiting, RN 11/04/2024 Telephone [facility] Transplant Kidney [address] [facility] [address] [id number] [place] [address] Jana Mota 10/31/2024 Telephone [facility] Transplant Kidney [address] [facility] [address] [id number] [place] [address] Rosemary Whiting, RN from Last 3 Months Allergies Active Allergy Reactions Criticality Noted Date Comments Methotrexate Other (See comments) Low Reaction: Bilateral lung infection Medications ferrous sulfate 325 mg (65 mg of elemental iron) tabletIndicat ions:Iron Deficiency Anemia Take 1 tablet (325 mg total) by mouth every morning 05/14/20 12 Active predniSONE (DELTASONE) 2.5 mg tablet TAKE 1 TABLET BY MOUTH EVERY DAY 30 tablet 11 10/26/20 23 Active tacrolimus 1 mg immediate-rel ease capsuleIndica tions:Kidney replaced by transplant Take 1 capsule (1 mg total) by mouth 2 (two) times a day 180 capsule 3 05/01/20 24 025 Active cyanocobalami n (Vitamin B-12) 1,000 mcg tabletIndicat ions:Preventi on of Vitamin B12 Deficiency Take 1 tablet (1,000 mcg total) by mouth daily Active cholecalcifer ol (VITAMIN D-3) 2000 unit tablet Take 1 tablet (2,000 Units total) by mouth daily Active famotidine (PEPCID) 20 mg tablet Take 1 tablet (20 mg total) by mouth nightly as needed for heartburn or indigestion Active acetaminophen (TYLENOL) 500 mg tablet Take 2 tablets (1,000 mg total) by mouth every 6 (six) hours as needed for pain 06/03/20 24 Active senna-docusat e (PERICOLACE) 8.6-50 mg Take 1 tablet by mouth 2 (two) times a day 06/03/20 24 Active polyethylene glycol (MIRALAX) 17 gram packetIndicat ions:constipa tion Take 1 packet (17 g total) by mouth daily 06/04/20 24 Active methocarbamoL (ROBAXIN) 500 mg tablet Take 1 tablet (500 mg total) by mouth 3 (three) times a day 06/03/20 24 Active gabapentin (NEURONTIN) 300 mg capsule Take 1 capsule (300 mg total) by mouth every 8 (eight) hours 06/03/20 24 Active lidocaine (ASPERCREME) 4 % adhesive patch,medicat ed Place 2 patches on the skin daily 06/03/20 24 Active oxyCODONE (ROXICODONE) 5 mg immediate release tabletIndicat ions:Pain Take 1 tablet (5 mg total) by mouth every 4 (four) hours as needed for pain 10 tablet 06/03/20 24 Active chlorhexidine (PERIDEX) 0.12 % solution SWISH AND SPIT 10-15ML BY MOUTH TWICE A DAY FOR 1 WEEK BEFORE AND AFTER SURGERY 04/01/20 24 Active penicillin v potassium (VEETID) 500 mg tablet TAKE 1 TABLET BY MOUTH FOUR TIMES A DAY UNTIL FINISHED 04/12/20 24 Active escitalopram (LEXAPRO) 10 mg tablet TAKE 1 TABLET BY MOUTH EVERY DAY 90 tablet 3 10/07/[address] (MYFORTIC) 360 mg EC tablet Take 1 tablet (360 mg total) by mouth 2 (two) times a day 180 tablet 3 11/04/19 25 026 Active atorvastatin (LIPITOR) 20 mg tablet TAKE 1 TABLET BY MOUTH EVERYDAY AT BEDTIME 90 tablet 3 12/23/19 25 Active metoprolol XL (TOPROL-XL) 25 mg extended release tablet TAKE 1 TABLET BY MOUTH EVERY DAY 90 tablet 3 12/23/19 25 Active oxyBUTYnin (DITROPAN) 5 mg tablet TAKE 1 TABLET BY MOUTH EVERY DAY 90 tablet 3 01/02/20 25 Active amLODIPine (NORVASC) 5 mg tablet Take 1 tablet (5 mg total) by mouth daily 90 tablet 3 01/06/20 25 Active atorvastatin (LIPITOR) 20 mg tablet TAKE 1 TABLET BY MOUTH EVERYDAY AT BEDTIME 90 tablet 3 11/22/19 24 025 Discontinued metoprolol XL (TOPROL-XL) 25 mg extended release tablet TAKE 1 TABLET BY MOUTH EVERY DAY 90 tablet 3 11/22/19 24 025 Discontinued oxyBUTYnin (DITROPAN) 5 mg tablet TAKE 1 TABLET BY MOUTH EVERY DAY 90 tablet 3 01/12/20 24 025 Discontinued amLODIPine (NORVASC) 5 mg tablet TAKE 1 TABLET BY MOUTH EVERY DAY 90 tablet 3 01/12/20 24 025 Discontinued(Re order) Active Problems Patient Care Coordination No te Formatting of this note migh t be different from the original. Pt is now living at [facility]--room [address] (CONTACT: BARRETT GARCIA/LONGWALL SHEARER OPERATOR DIR OF NURSING) P: [phone]; F: [phone] SO'S MONTHLY: FK; Q3: ROUTINE Exp. 10/01/25 Problem Noted Date Diagnosed Date Discharge planning issues 05/31/2024 Assessment & Plan (06/03/2024 11:40 AM CDT): - 05/31- 06/02: Patient is medically stable for discharge, SW/CM updated. Discharge pending facility bed availability - 06/03: anticipate discharge today Acute pain due to trauma 05/28/2024 Assessment & Plan (05/31/2024 3:46 PM CDT): - Tylenol 1g q6h - Gabapentin 300mg q8h - Lidocaine patch x2 - Robaxin 500mg TID - Oxycodone 5mg q4h PRN Severe malnutrition 05/27/2024 Closed fracture of spinous process of cervical v ertebra 05/26/2024 Assessment & Plan (05/31/2024 3:48 PM CDT): C5-C6 spinous process fractures on imaging, unable to rule out acute fracture - NSGY c/s - Dorado J collar - MRI C spine (05/26): Advanced degenerative changes of the cervical spine cause severe spinal canal stenosis at the levels of C4-C5, C5-C6 and C6-C7, endplate edema from C4-C5 to C6-C7 is favored to represent type I, Modic change although small nondisplaced fracture cannot be completely excluded - non-operative management - PT/OT Multiple fractures of ribs, right side, init for clos fx 05/25/2024 Assessment & Plan (06/01/2024 2:28 PM CDT): R 2-10 mildly displaced rib fractures - pain consult - pulmonary hygiene - pain mgmt following. Possible epidural placement pending C spine MRI findings, vs lidocaine gtt - 05/27: okay to transfer to OU - chest xr (05/31): right greater than left bullous emphysematous changes in bilateral lung apices, no pneumothorax - chest xr (06/01): mild left basilar atelectasis but there is no new consolidation. There is no pleural effusion or pneumothorax. Renal transplant recipient 10/25/2018 Assessment & Plan (06/02/2024 1:19 PM CDT): - continue home immunosuppression - transplant nephrology c/s - continue Prednisone, Tacrolimus. Hold Mycophenolate sodium - 05/31: discontinue IV fluid - Blood cultures (05/31): no growth to date - Tacrolimus (06/01): 3.4ng/mL - Tacrolimus (06/02): 4.3ng/mL Hypocitraturia 10/25/2018 Nephrolithiasis 08/06/2018 Hyperparathyroidism 08/06/2018 Age-related osteoporosis wit hout current pathological fracture 07/16/2018 Dyslipidemia 04/06/2015 Immunosuppression 04/06/2015 Hypertension 08/26/2013 Assessment & Plan (06/01/2024 2:28 PM CDT): 05/30 - restarted home amlodipine. 06/01: Resume Metoprolol 12.5mg BID Herpes zoster 08/26/2013 Hyperparathyroidism due to renal insufficiency 1 Rheumatoid arthritis(714.0) 11/21/2012 Aftercare following organ transplant 08/22/2012 Encounter for long-term (cur rent) use of high-risk medication 08/22/2012 Immunizations Immunization Administration Dates Next Due Influenza, Trivalent, Preservative Free, Intramu scular 08/26/2014 Pneumococcal Conjugate PCV 13 08/26/2014 Social History Tobacco Use Types Packs/Day Years Used Date Smoking Tobacco: Never Smokeless Tobacco: Never Alcohol Use Standard Drinks/Week Comments Yes 0 (1 standard drink = 0.6 oz pur e alcohol) rare Personal Safety Answer Date Recorded Have you ever been in or are you currently in a harmful physical or emotional relationship or is someone making you feel afraid or unsafe? 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 Gender Identity Not on file Sexual Orientation Not on file Last Filed Vital Signs Vital Sign Reading Time Taken Comments Blood Pressure 121/86 07/04/2024 10:15 AM CDT Pulse 67 07/04/2024 10:15 AM CDT Temperature 36.7 C (98.1 F) 06/03/2024 11:48 AM CDT Respiratory Rate 16 06/03/2024 11:48 AM CDT Oxygen Saturation 95% 06/03/2024 11:48 AM CDT Inhaled Oxygen Concentration - - Weight 38.8 kg (85 lb 9.6 oz) 05/29/2024 4:28 AM CDT Height 149.9 cm (4' 11 ) 07/04/2024 10:15 AM CDT Body Mass Index 17.28 05/27/2024 8:49 AM CDT Plan of Treatment Not on file Medical Devices Explanted Type Area Protective Signal Operator Device Identifier Shelf Expiration Date Model / Serial / Lot [employer] Long [id number] 6fr 20cm Taper Tip Bladder Jose Low Profile Large Inner Lumen Latex Free - [id number] Implanted:Qty: 1 on 06/19/2019 by Yomaira Khoury MD at [facility] Explanted:Qty: 1 on 07/02/2019 by Deshawn De Leon MD at [facility] Stent Right: Ureter [employer] [id number] 01/23/2022 [id number] / / [id number] [employer] [id number] 4.8fr 14cm Taper Tip Bladder Jose Low Profile Large Inner Lumen Latex Free - [id number] Implanted:Qty: 1 on 07/02/2019 by Yomaira Khoury MD at [facility] Explanted:Qty: 1 on 07/15/2019 by Kenya Shi NP [employer] 01/16/2020 [id number] / / Procedures Procedure Name Priority Date/Time Associated Diagnosis Comments RENAL FUNCTION PANEL Routine 11/28/2024 LIPID PANEL Routine 11/28/2024 HEPATIC FUNCTION PANEL Routine 11/28/2024 CBC WITH AUTO DIFFERENTIAL Routine 11/28/2024 TACROLIMUS LEVEL, TROUGH Routine 11/28/2024 DEXA AXIAL SKELETON BONE DENSITY 1 OR MORE SITES Schedule Routine, Read Routine (OP Routine) 08/01/2019 10:23 AM CDT Age-related osteoporosis without current pathological fracture Vitamin D deficiency from Last 3 Months or Most Recently Relevant to Health Maintenance Results * Tacrolimus level trough (11/28/2024) SCRIBED Tacrolimus, trough 5.4 5 - 20 TXP NO LAB FOUND Blood 11/28/2024 Result [facility] Historical Provider LAB BLOOD ORDERABLES Dolores l Result Performing Organization Address [facility] Co de Phone Number [place] NO LAB FOUND * (ABNORMAL) CBC with auto differential (11/28/2024) Pathologist [facility] SCRIBED WBC 9.70 3.8 - 10.8 k/cumm TXP NO LAB FOUND SCRIBED Hemoglobin 10.8(A) 12 - 15 g/dL TXP NO LAB FOUND SCRIBED Hematocrit 37 36 - 44 % TXP NO LAB FOUND SCRIBED Platelets 358 130 - 400 k/cumm TXP NO LAB FOUND SCRIBED Lymphocytes Abs 2.43 1.2 - 5.2 k/cumm TXP NO LAB FOUND Blood 11/28/2024 Result [facility] Provider LAB BLOOD ORDERABLES Edit ed Result - Final Performing Organization Address [facility] [[email or web address]] de Phone Number TX NO LAB FOUND * Hepatic function panel (11/28/2024) Pathologist [facility] SCRIBED Protein, Total, Serum 6.8 5.9 - 8.0 g/dL TXP NO LAB FOUND SCRIBED Bilirubin, Total 0.7 0.3 - 1.0 mg/dL TXP NO LAB FOUND SCRIBED Bilirubin, Direct 0.18 0.0 - 0.2 mg/dL TXP NO LAB FOUND SCRIBED Alkaline Phosphatase 64 34 - 104 Units/L TXP NO LAB FOUND SCRIBED Aspartate Transaminase (AST) 20 13 - 39 Units/L TXP NO LAB FOUND SCRIBED Alanine Transaminase (ALT) 15 2 - 45 Units/L TXP NO LAB FOUND Blood 11/28/2024 Result [facility] Historical Provider LAB BLOOD ORDERABLES Dolores l Result Performing Organization Address [facility] Co de Phone Number TXP NO LAB FOUND * (ABNORMAL) Renal function panel (11/28/2024) SCRIBED Calcium 9.0 8.6 - 10.3 mg/dl TXP NO LAB FOUND SCRIBED Phosphorus 2.8 2.5 - 4.0 mg/dl TXP NO LAB FOUND SCRIBED Albumin 2.6(A) 3.5 - 5.5 g/dl TXP NO LAB FOUND SCRIBED Glucose 66(A) 70 - 105 mg/dl TXP NO LAB FOUND SCRIBED Creatinine 0.57 0.5 - 1.4 mg/dl TXP NO LAB FOUND SCRIBED Sodium 137 135 - 145 mmol/L TXP NO LAB FOUND SCRIBED Potassium 4.4 3.5 - 5.3 mmol/L TXP NO LAB FOUND SCRIBED Chloride 105 98 - 110 mmol/L TXP NO LAB FOUND SCRIBED Carbon Dioxide 26 21 - 34 mmol/L TXP NO LAB FOUND SCRIBED eGFR in 132 >60 TXP NO LAB FOUND SCRIBED eGFR in NonAfrican South Korean 109 >60 TXP NO LAB FOUND SCRIBED Urea Nitrogen (BUN) 27(A) 5 - 25 mg/dl TXP NO LAB FOUND Blood 11/28/2024 Historical Provider LAB BLOOD ORDERABLES Edit ed Result - Final Performing Organization Address [facility]/ZIP Co de Phone Number TXP NO LAB FOUND * (ABNORMAL) Lipid panel (11/28/2024) Pathologist [facility] SCRIBED Cholesterol, Total 90(A) 140 - 200 TXP NO LA B FOUND SCRIBED HDL 49.9 40 - 92 TXP NO L AB FOUND SCRIBED LDL 30(A) 75 - 193 TXP NO L AB FOUND SCRIBED Triglycerides 53 40 - 150 TXP NO LAB FOUND Blood 11/28/2024 Historical Provider LAB BLOOD ORDERABLES Dolores l Result TXP NO LAB FOUND * Dexa Axial Skeleton Bone Density 1 or 2 Site (08/01/2019 10:23 AM CDT) Anatomical Region Laterality Modality Body N/A Radiographic Genevieve ging Narrative 08/01/2019 12:29 PM CDT Patient Name: Lacho Mcmillan Date of : 1945 Date of scan: 08/01/2019 Bone mineral density was performed on a [employer] Matrix Discovery Densitometer. Machine Cross-calibration and Precision studies have been performed with a least significant change of 0.024 g/cm at the spine, 0.020 g/cm at the total proximal femur, and 0.014g/cm at the forearm. HISTORY: This is a 74 y.o. postmenopausal female with a history of hyperparathyroidism(post surgery), osteoporosis, renal transplant, rheumatoid arthritis and vitamin D deficiency. Currently on treatment with glucocorticoids, Prolia and vitamin D. Previously treated with Fosamax and hormone replacement therapy. With a current complaint of neck pain. History of tobacco use: Social History Tobacco Use Smoking Status Never Smoker INDICATIONS: Menopause status, treatment monitoring, history of glucocorticoids use, vitamin D deficiency, currently on 2.5 mg of glucocorticoids for the past 8 year(s) and history of osteoporosis. FINDINGS: BONE MINERAL DENSITY OF THE LUMBAR SPINE Bone Mineral Density (BMD) of the lumbar spine was measured from L1-L4 and the average density was calculated to be 0.745 gm/cm. This corresponds to a T-score standard deviations from the mean of young adults of -2.7. When compared to the previous study of 07/16/2018 there has been no significant change noted. BONE MINERAL DENSITY OF THE PROXIMAL FEMUR Bone Mineral Density (BMD) of the right hip total was found to be 0.486 gm/cm2. This corresponds to a T-score standard deviations from the mean of young adults of -3.7. Femoral neck is 0.456 gm/cm2 with a T-score of -3.5. When compared to the previous study of 07/16/2018 there has been a measured 0.039 gm/cm 8.8 % increase which is considered significant. SUMMARY: Bone mineral density shows evidence of osteoporosis and marked increase risk of fracture.There has been a signicant increase in bone density since previous measurement. ADDITIONAL COMMENTS: Please note there is an internal artifact on the spine scan that cannot be removed. If the patient has a history of a fragility fracture, a fracture that occurred with trauma equivalent to a fall from a standing position or less, then the diagnosis is osteoporosis. The risk of osteoporotic fracture increases approximately 2-fold for each 1.0 SD decrease in T-score. However, low bone density is not the only risk factor for fracture. Other factors include patient s age, previous osteoporotic fracture or prior fracture as an adult, loss of height of greater than 2 inches, corticosteroid use, risk of falling, risk of injury, and family history of osteoporosis. Not everyone with low bone mineral density has osteoporosis. Osteomalacia and other metabolic bone disorders should also be considered where indicated. Patients who have osteoporosis should be evaluated for specific diseases and conditions (secondary causes) that may cause or contribute to bone loss. Consider repeating this study in 1-2 years to assess the patient s response to treatment, if applicable. It is recommended that any follow up exam be performed on the same machine if possible for better accuracy. DEFINITIONS: Osteoporosis: BMD at or below -2.5 T-score Osteopenia (low bone mass): BMD between -1.0 and-2.5 T-score. The Bone Health Program adopts the following WHO definitions: Osteoporosis: BMD below -2.5 S.D. as compared to the BMD of young normal adults. Osteopenia or Low Bone Mass: BMD between -1.0 and -2.5 S.D. below the BMD of young normal adults. Normal Bone Density: BMD equal to or greater than -1.0 S.D. as compared to the BMD of young normal adults. References: 1) Jorge, Annals of Internal Medicine 114(11): 919-923 (1990) 2) Telles, Lancet 341 : 72-75 (1992) 3) Black, Journal Bone and Mineral Research 7(6): 633-8 (1991) 4) Elkin, Journal Bone and Mineral Research 8(10):1227-33 (1992) The history and data sections of the bone mineral density scan were prepared by Bambi Donis (R)(CBDT) who is accredited by the International Society of Clinical Densitometry. The overall patient assessment and scan interpretation were performed by Anais Sumner M.D. who is certified by the International Society of Clinical Densitometry. [id number] Sarah Beth Husain DNP IMG DXA PROCEDURES Final Result from Last 3 Months or Most Recently Relevant to Health Maintenance Insurance Dr [address] [place] [address] MEDICARE [facility] [address] [place] [id number] MEDICARE [facility] [place] [address] MEDICARE [facility] [place] [address] Advance Directives For more information, please contact: [phone] * Full Code (Latest Code Status on File) Date Activated Date Inactivated Comments 05/25/2024 7:53 PM 06/03/2024 7:52 PM Healthcare Agents on File Name Relationship Healthcare Agent Relationship Communication Kaylin Canas Daughter Health Care Agent [email or web address] Care Teams Insights Analyst Relationship Specialty Start Date End Date Obdulio Campos DO PCP - General 04/04/17 Rosemary Whiting, RN [address] [place] [address] [place] 04/30/18 Christian Friend MD [address] [address] Referring Physician Transplant 05/06/19
--- OUTSIDE RECORDS SUMMARY | 2025-01-09 15:01 | XMS_ITS ---
Author Organization [facility] al Address [address] [place] [address] Care Team Providers Care Teacher Music Name Role Phone Obdulio Campos DO Primary Care Provider [phone] Rosemary Whiting RN Unavailable [phone] Christian Friend MD Unavailable [phone] Transplant Episode Kidney Recipient [facility] ([place], [place]) - [facility] Transplanted on 08/29/2011 Marked as Active Follow-up on 08/29/2011 Reason: Transplanted at Outside Center Kidney CoordinatorRosemary Whiting RN Fax: N/A Email: N/A Transplanted Elsewhere: [facility] ([place], [place]) - [facility] Coordinator: Phone: Fax: Infection History Noted Survival Infection Treatment Organism Resolved 08/26/2013 1 year 11 months Herpes zoster Care Team Name Role Phone Fax Email Rosemary Whiting RN Kidney Coordinator [phone] N/A N/A Jennifer Hills Secondary Human Performance Consultant N/A N/A N/A Higinio Triana RN Secondary Coordinator Secondary Kidney Coordinator [phone] N/A N/A Jana Mota Primary Human Performance Consultant N/A N/A N/A Rosemary Whiting RN Plate Finisher [phone] N/A N/A Events Post-Transplant Pre-Transplant Transplanted: 08/29/2011
--- OUTSIDE RECORDS SUMMARY | 2025-01-09 15:01 | XMS_ITS | Clinical Summary ---
Author Organization [facility] al Address [address] [place] [address] Care Team Providers Care Pot Operator Name Role Phone Obdulio Campos DO Primary Care Provider [phone] Rosemary Whiting RN Unavailable [phone] Christian Friend MD Unavailable [phone] Allergies Active Allergy Reactions Criticality Noted Date [...] the original. Pt is now living at [facility]--room [address] (CONTACT: BARRETT GARCIA/TAPE LIBRARIAN DIR OF NURSING) P: [phone]; F: [phone] SO'S MONTHLY: FK; Q3: ROUTINE Exp. 10/01/25 [...] out acute fracture - NSGY c/s - [place] J collar - MRI C spine (05/26): [...] (cur rent) use of high-risk medication 08/22/2012 Encounters Date Type Department Care Team Description 12/04/2024 Telephone [facility] Transplant Kidney [address] Mailstop [id number] [place] [address] Rosemary Whiting, RN 12/03/2024 Lab [facility] Transplant Kidney [address] Mailstop [id number] [place] [address] Renetta Crane MD 11/05/2024 Telephone [facility] Transplant Kidney [address] Mailstop [id number] [place] [address] Rosemary Whiting, RN 11/04/2024 Telephone [facility] Transplant Kidney [address] Mailstop [id number] [place] [address] Jana Mota 10/31/2024 Telephone [facility] Transplant Kidney [address] Mailstop [id number] [place] [address] Rosemary Whiting, RN from Last 3 Months Immunizations Immunization Administration Dates Next Due Influenza, Trivalent, Preservative Free, Intramu scular 08/26/2014 Pneumococcal Conjugate PCV 13 08/26/2014 Surgical History Surgery Date Site/Laterality Comments CENTRAL LINE PLACEMENT > 5 YEARS 10/17/2016 N/A TOTAL HIP ARTHROPLASTY 10/30/1989 - 10/29/1990 Left revision 09/2016 TRANSPLANTATION RENAL 10/30/2010 - 10/29/2011 KIDNEY STONE SURGERY ANKLE FUSION 10/30/1995 - 10/29/1996 Right ANKLE FUSION 10/30/2004 - 10/29/2005 Left PARATHYROID GLAND SURGERY WRIST SURGERY SPLENECTOMY FEMUR FRACTURE SURGERY 10/30/2015 - 10/29/2016 Bilateral REPLACEMENT TOTAL KNEE BILATERAL CHOLECYSTECTOMY Medical History Medical History Date Comments Calculus of kidney Nephrolithias is - (Added by TW Conv) Calculus of kidney Nephrolithias is - (Added by TW Conv) Rheumatoid arthritis (HCC) 1968 Osteoporosis Vitamin D deficiency History of femur fracture 01/01/2016 bilate ral History of renal transplant 2010 Anemia GERD (gastroesophageal reflux disease) Hyperparathyroidism Hypertension Hard to intubate 2010 kidney tx in [facility] Family History Medical History Relation Name Comments Heart attack Father Hypertension Father Hypertension Mother Stroke Mother Relation Name Status Comments Father Mother Social History Tobacco Use Types Packs/Day Years [...] on file Legal Sex Female 10:09 AM CLASS A LINEM[employer] Gender Identity Not on file Sexual Orientation Not on file Obstetrics History Last Filed Vital Signs Vital Sign Reading [...] 05/27/2024 8:49 AM CDT Plan of Treatment Health Maintenance Due Date Last Done Comments Depression Screening 1945 Hepatitis C Screening 1945 DTaP/Tdap/Td Vaccine (1 - Tdap) 1957 Hepatitis B Screening 01/28/1964 Zoster Vaccine (1 of 2) 1965 Well Visit 65+ 2011 Pneumococcal vaccine 65+ (2 of 2 - PPSV23) 10/21/2014 08/26/2014 Osteoporosis Screening-Bone Density Scan 08/01/2021 08/01/2019, 07/16/2018, 07/21/2017, Additional history exists Covid-19 Vaccine (4 - 2023-2 5 season) 2024 08/20/2021, 12/31/2020, 12/10/2020 Influenza Vaccine (#1) 2024 08/26/2014 Fall Risk Assessment 06/03/2025 06/03/2024 Medical Devices Explanted Type Area Technical Services Analyst Device Identifier Shelf Expiration Date Model / Serial / Lot [employer] Long [id number] 6fr 20cm Taper Tip Bladder Jose Low Profile Large Inner Lumen Latex Free - [id number] Implanted:Qty: 1 on 06/19/2019 by Yomaira Khoury MD at [facility] Explanted:Qty: 1 on 07/02/2019 by Deshawn De Leon MD at [facility] Stent Right: Ureter [employer] [id number] 01/23/2022 [id number] / / [id number] [employer] [id number] 4.8fr 14cm Taper Tip Bladder Jose Low Profile Large Inner Lumen Latex Free - [id number] Implanted:Qty: 1 on 07/02/2019 by Yomaira Khoury MD at [facility] Explanted:Qty: 1 on 07/15/2019 by Kenya Shi NP [employer] Long 01/16/2020 [id number] / / Procedures Procedure Name Priority Date/Time [...] 20 TXP NO LAB FOUND Blood 11/28/2024 us Historical Provider LAB BLOOD ORDERABLES Dolores l Result Performing Organization Address [facility] de Phone Number TXP NO LAB FOUND * (ABNORMAL) CBC with auto differential (11/28/2024) SCRIBED WBC 9.70 3.8 - 10.8 k/cumm TXP NO LAB FOUND SCRIBED Hemoglobin 10.8(A) 12 - 15 g/dL TXP NO LAB FOUND SCRIBED Hematocrit 37 36 - 44 % TXP NO LAB FOUND SCRIBED Platelets 358 130 - 400 k/cumm TXP NO LAB FOUND SCRIBED Lymphocytes Abs 2.43 1.2 - 5.2 k/cumm TXP NO LAB FOUND Blood 11/28/2024 Historical Provider LAB BLOOD ORDERABLES Edit ed Result - Final Performing Organization Address [facility] de Phone Number TX NO LAB FOUND * Hepatic function panel (11/28/2024) SCRIBED Protein, Total, Serum 6.8 5.9 - [...] Units/L TXP NO LAB FOUND Blood 11/28/2024 Historical Provider LAB BLOOD ORDERABLES Dolores l Result Performing Organization Address [facility] de Phone Number TX NO LAB FOUND * (ABNORMAL) Renal function [...] NO LAB FOUND SCRIBED eGFR in NonAfrican Cameroonian 109 >60 TXP NO LAB FOUND SCRIBED Urea Nitrogen (BUN) 27(A) 5 - 25 mg/dl TXP NO LAB FOUND Blood 11/28/2024 Historical Provider LAB BLOOD ORDERABLES Edit ed Result - Final TXP NO LAB FOUND * (ABNORMAL) Lipid panel (11/28/2024) SCRIBED Cholesterol, Total 90(A) 140 - 200 [...] Bone mineral density was performed on a [employer] Discovery Densitometer. Machine Cross-calibration and Precision studies [...] by the International Society of Clinical Densitometry. [id number] Sarah Beth Husain [facility] DXA PROCEDURES Final Result from Last 3 Months or Most Recently Relevant to Health Maintenance Insurance MEDICARE [facility] MEDICARE [facility] [address] [place] [address] MEDICARE [employer] [facility] Advance Directives For more information, please contact: [phone] * Full Code (Latest Code Status on File) Date Activated Date Inactivated Comments 05/25/2024 7:53 PM 06/03/2024 7:52 PM Healthcare Agents on File Name Relationship Healthcare Agent Relationship Communication Kaylin Canas Daughter Health Care Agent [email or web address] Care Teams Pot Operator Relationship Specialty Start Date End Date Obdulio Campos DO PCP - General 04/04/17 Rosemary Whiting, RN [address] [place] [address] Jumpbasting Machine Operator 04/30/18 Christian Friend MD [address] [place] [address] Referring Physician Transplant 05/06/19
[2025-01-09 19:07] LABS: Add Urine Microscopic? YES; Appearance Urine Cloudy (Clear); Bacteria Urine None Seen /hpf; Bilirubin Urine Negative (Negative); Blood Urine Negative (Negative); Color Urine Yellow (Yellow); Glucose Urine UA Negative (Negative); Ketones Urine Negative (Negative); Leukocyte Esterase Ur 1+ LEU/UL (Negative); Nitrate Urine Negative (Negative); Non Pathogenic Casts 0-2; Protein Urine 2+ mg/dL (Negative); RBC Urine 0-2 /hpf (0-2); Specific Grav Ur 1.019 (1.001-1.035); Squamous Epithelial Cell Urine Occasional /hpf (Few); Urobilinogen Urine 0.2 mg/dL (<2.0); WBC Urine 21-50 /hpf (0-3); pH Urine 6.5 (5.0-9.0)
== END 2025-01-09 13:22 | disposition home or self-care (01) ==
LOC: ANHGOSHLAB 13:22
PROVIDERS: PCP Internal Medicine; Visit Provider Nurse Practitioner
DX: N30.00 Acute cystitis without hematuria (principal); R35.0 Frequency of micturition
CPT/HCPCS: 81001; 87086

== ENCOUNTER 2025-05-16 08:12 | Emergency (ER) | payer MEDICARE, OTHER, SELFPAY ==
--- NOTE | 2025-05-16 08:14 | ED_ITS ---
HPI - Female Genitourinary General Chief complaint: Urogenital-Female Stated complaint: UTI Time Seen by Provider: 05/16/25 08:13 Source: patient Mode of arrival: ambulatory Limitations: no limitations History of Present Illness HPI Narrative: [place] is a 80-year-old female patient presenting to the clinic today with complaints of possible UTI. She reports she has had urinary frequency, urgency, incontinence, and burning with urination x3 days. No fevers, chills, body aches, back pain, or abdominal pain. History right sided kidney transplant and kidney stones. Has not taken any medications to treat her symptoms. Related Data Home Medications ?Medication ?Instructions ?Recorded ?Confirmed ?Last Taken ?Type amlodipine 5 mg tablet 5 mg PO DAILY 11/10/21 05/16/25 11/04/22 09:00 History atorvastatin 20 mg tablet 20 mg PO DAILY 11/10/21 05/16/25 Unknown History escitalopram oxalate 10 mg tablet 10 mg PO DAILY 11/10/21 05/16/25 Unknown History (Lexapro) ferrous sulfate 325 mg (65 mg 325 mg PO DAILY 11/10/21 05/16/25 Unknown History iron) tablet metoprolol succinate 25 mg 12.5 mg PO DAILY 11/10/21 05/16/25 Unknown History tablet,extended release 24 hr oxybutynin chloride 5 mg tablet 5 mg PO DAILY 11/10/21 05/16/25 Unknown History tacrolimus 1 mg capsule, 1 mg PO Q12H 11/10/21 05/16/25 Unknown History immediate-release (Prograf) prednisone 2.5 mg tablet 2.5 mg PO DAILY 09/19/22 01/09/25 Unknown History famotidine 20 mg tablet 20 mg PO .prn 09/07/23 05/16/25 Unknown History mecobalamin (vitamin B12) 1,000 1,000 mcg sublingual DAILY 09/07/23 05/16/25 Unknown History mcg disintegrating tablet,sublingual acetaminophen 500 mg capsule 1,000 mg PO Q6H PRN 06/27/24 01/09/25 Unknown History cholecalciferol (vitamin D3) 50 50 mcg PO DAILY 06/27/24 05/16/25 Unknown History mcg (2,000 unit) capsule lidocaine 4 % topical patch 2 patch topical DAILY PRN pain 06/27/24 01/09/25 Unknown History mycophenolate sodium 360 mg mg PO 10/29/24 01/09/25 Unknown History tablet,delayed release vit C 250 mg-vit E 90 mg-zinc 40 1 tablet PO BID 12/30/24 05/16/25 Unknown History mg-copper 1 [id number]-yegwwx capsule (PreserVision AREDS-2) Allergies Allergy/AdvReac Type Severity Reaction Status Date / Time methotrexate Allergy Unknown Nausea Verified 05/16/25 08:26 Review of Systems Review of Systems: Pertinent positives per HPI. Patient denies any fever, chills, rash, headache, visual changes, dizziness, cough, runny nose, sore throat, shortness of breath, chest pain, palpitations, nausea, vomiting, diarrhea, constipation, abdominal pain. [facility] Past Medical History Medical History COVID Personal history of kidney stones Cataract (lens) fragments in eye following cataract surgery, right eye Hypertension Osteoporosis Anemia Hip replacement planned 1995 Pneumonia Osteoarthritis Hyperparathyroidism Hyperlipidemia Femur fracture BL Chronic renal failure Rheumatoid arthritis Surgical History Surgical History History of cholecystectomy H/O ankle fusion H/O splenectomy 1984 History of knee replacement 1989 H/O wrist replacement 2000 H/O oral surgery 2004 H/O parathyroidectomy 2007 Kidney replaced by transplant 1995 Family History Family History Father Diabetes mellitus CHF (congestive heart failure) Mother Hypertension Breast cancer Social History Social History Social History: Caffeine-tea Smoking status: Never smoker Alcohol intake: current Alcohol use details: rarely Substance use: never Substance use type: does not use Lack of Transportation: No Lack of Food: Never True Current Housing: I Have Housing Concerned About Future Housing: No Difficulty Paying Gas/Electric Bills: No Difficulty Paying for Meds: No Currently Unemployed: No Education: Bachelor's Degree Difficulty w/ Childcare or Family Care: No Living arrangements: with family Additional living arrangements comments: daughter Spiritual care concerns: No Comments At the time of my signature, I reviewed and agree with the nursing past medical, surgical, social, and family history. There is no relevant family history pertinent to the patient complaint. Exam Narrative: General: Well-developed, thin/frail, in no apparent distress. Head: Normocephalic, atraumatic. Cardio: Regular rate and rhythm, s1 and s2 normal, no murmur appreciated. Resp: Clear to auscultation bilaterally, no rhonchi, rales, wheezing or rubs. Abdomen: Soft, pliable, bowel sounds present in all quadrants, non-tender to palpation, no organomegly, no CVAT tenderness. Course Course Emergency Course: Portions of this record may have been created with voice recognition software. Level of Care: Express Care Visit Vital Signs Vital signs: Vital Signs Temperature 36.8 C 05/16/25 08:27 Pulse Rate 87 05/16/25 08:27 Respiratory Rate 16 05/16/25 08:27 Blood Pressure 125/95 H 05/16/25 08:27 Pulse Oximetry 100 05/16/25 08:27 Temperature 36.8 C 05/16/25 08:27 Pulse Rate 87 05/16/25 08:27 Respiratory Rate 16 05/16/25 08:27 Blood Pressure 125/95 H 05/16/25 08:27 Pulse Oximetry 100 05/16/25 08:27 Vital signs reviewed MDM - Female Genitourinary MDM Narrative Medical decision making narrative: At the time of visit patient is resting comfortably on the exam table. Patient appears to be nontoxic. Patient reporting urinary frequency, urgency, incontinence, and burning with urination x3 days. History of UTIs, kidney stones, chronic renal failure, and right sided kidney transplant. No fevers, body aches, chills, nausea vomiting, or back/flank pain. Will order urinalysis. Had UTI symptoms back in December and placed patient on Augmentin and that helped. A culture of her urine was not completed at that time. Labs: Urinalysis performed in the clinic today, urinalysis positive for 1+ leukocytes, 2+ protein and a trace of lysed blood. We will send urine for culture. Plan: I suspect patient has UTI. Prescription for Augmentin liquid was sent in for the patient as this helped with her UTI symptoms last time. We will send urine for culture. Supportive measures were discussed with the patient and they voiced understanding discharge instructions and agrees to treatment plan. Return precautions reviewed Differential Diagnosis Differential diagnosis: Likely urinary tract infection (Overactive bladder syndrome, stress incontinence, overflow incontinence, bladder mass ) and cystitis Discharge Plan Discharge Clinical Impression: UTI (urinary tract infection) Qualifiers: Urinary tract infection type: acute cystitis Hematuria presence: with hematuria Qualified Code(s): N30.01 - Acute cystitis with hematuria Patient Disposition: Home Condition: Stable Instructions: Antibiotic Form, Urinary Tract Infection in Older Adults (ED) Additional Instructions: Urinalysis positive for leukocytes, protein, and blood. We will send urine for culture. We will place you on Augmentin at this time and if your urine culture comes back and Augmentin will not cover bacteria we will contact you in place you on a different antibiotic medication Increase fluids and stay well hydrated Wipe front to back. May use wet wipes. Avoid tub baths If sexually active- pee before and after intercourse. Wear cotton panties Avoid tight clothing up against the genitals Follow up with your PCP in 1 week if symptoms persist. Patient Language: Dominican Prescriptions: New amoxicillin-pot clavulanate 600-42.9 mg/5 mL suspension for reconstitution 7.3 ml PO BID 7 Days Qty: 102.2 0RF No Action mycophenolate sodium 360 mg tablet,delayed release (DR/EC) PO prednisone 2.5 mg tablet 2.5 mg PO DAILY PreserVision AREDS-2 250-90-40-1 mg capsule 1 tablet PO BID amlodipine 5 mg tablet 5 mg PO DAILY atorvastatin 20 mg tablet 20 mg PO DAILY ferrous sulfate 325 mg (65 mg iron) tablet 325 mg PO DAILY escitalopram oxalate [Lexapro] 10 mg tablet 10 mg PO DAILY metoprolol succinate 25 mg tablet extended release 24 hr 12.5 mg PO DAILY oxybutynin chloride 5 mg tablet 5 mg PO DAILY tacrolimus [Prograf] 1 mg capsule 1 mg PO Q12H famotidine 20 mg tablet 20 mg PO .prn mecobalamin (vitamin B12) 1,000 mcg tablet,disintegrating 1,000 mcg sublingual DAILY Rx Instructions: place tablet under tongue and allow to dissolve for at least30 secs before swallowing lidocaine 4 % adhesive patch,medicated 2 patch topical DAILY PRN (Reason: pain) acetaminophen 500 mg capsule 1,000 mg PO Q6H PRN cholecalciferol (vitamin D3) 50 mcg (2,000 unit) capsule 50 mcg PO DAILY Follow-up/Referrals: Obdulio Campos, DO [Primary Care Provider] - Time of Disposition: 08:54 Quality NIHSS Nursing Documentation ED NIHSS nursing documentation: reviewed/agree
[2025-05-16 08:27] VITALS: BP 125/95; PULSE 87; RESP 16; TEMP 36.8; O2SAT 100
[2025-05-16 09:14] LABS: EDUAAPPEAR Cloudy; EDUABILI Negative (Negative); EDUABLOOD Trace (Negative); EDUACOLOR1 Dark; EDUAGLUCOSE Negative (Negative); EDUAKETONE Negative (Negative); EDUALEUKO 1+ (Negative); EDUANITRATE Negative (Negative); EDUAPH 6.0; EDUAPROTEIN 2+ (Negative); EDUASPGRAVITY 1.020; EDUAUROBILI 0.2
== END 2025-05-16 08:58 | disposition home or self-care (01) ==
PROVIDERS: Emergency Provider Nurse Practitioner Family; PCP Internal Medicine
DX: N30.01 Acute cystitis with hematuria (principal); I10 Essential (primary) hypertension; M06.9 Rheumatoid arthritis, unspecified; M81.0 Age-related osteoporosis without current pathological fracture; D64.9 Anemia, unspecified; Z86.16 Personal history of COVID-19; Z94.0 Kidney transplant status; Z87.442 Personal history of urinary calculi; Z96.653 Presence of artificial knee joint, bilateral; Z90.89 Acquired absence of other organs
CPT/HCPCS: 81003; 99213; G0463